=== PATIENT | male | born 1940 | race Caucasian/White ===

== ENCOUNTER 2018-04-14 11:41 | Outpatient (CLI) | payer MEDICARE ==
--- NOTE | 2018-04-14 13:41 | RAD ---
SUPINE VIEW ABDOMEN: HISTORY: Abdominal pain and distention. TECHNIQUE: A supine view of the abdomen is obtained. FINDINGS: There is an inferior vena cava filter in place at the level of L1-L2. A moderate amount of stool is seen in the colon. No evidence of bowel obstruction or ileus is seen. There is a right hip arthroplasty in place. AP view abdomen demonstrates no significant interval change since the previous comparison exam from 01/26/2017. POS: PRATIMA
== END 2018-04-14 11:42 | disposition home or self-care (01) ==
LOC: SJMANOR 11:41
PROVIDERS: ATTEND Family Medicine
DX: R10.9 Unspecified abdominal pain (principal); R14.0 Abdominal distension (gaseous); Z96.641 Presence of right artificial hip joint
CPT/HCPCS: 74018

== ENCOUNTER 2018-10-09 22:38 | Emergency (ER) | payer MEDICARE, BC, MEDICAID ==
[2018-10-09] MEDS ORDERED: Morphine 4 MG/ML VIAL ONE (23:24)
[2018-10-09] MEDS ORDERED: Ondansetron PF 4 MG/2 ML Vial ONE (23:24)
--- NOTE | 2018-10-10 08:06 | ULT ---
PRELIMINARY REPORT/[facility]/EMERGENTY AFTER-HOURS PROCEDURE US Right Duplex Lower Extremity Veins, Limited EXAM DATE/TIME: 10/09/2018 11:30 PM CLINICAL HISTORY: 78 years old, male; Pain; Other: Rle pain, swelling, prev dvt and ivc filter TECHNIQUE: Real-time Duplex ultrasound of the Right Lower Extremity with 2-D rodgers scale, color Doppler flow and spectral waveform analysis. Limited exam was focused on the right lower extremity veins. COMPARISON: No relevant prior studies available. FINDINGS: Right deep veins: Patient has a duplicated femoral vein with partial thrombus within the medial vein which extends down the popliteal and into the posterior tibial vein compatible with chronic DVT. Flow is seen within the deep venous system including the posterior tibial, popliteal and femoral vein and there is augmentation. Right superficial veins: Unremarkable. Saphenofemoral junction is patent without thrombus. Soft tissues: Soft tissue edema is present. IMPRESSION: Partially occlusive thrombus with the medial segment of duplicated RIGHT femoral vein which extends t o the popliteal and posterior tibial veins suggestive of chronic DVT. Thank you for allowing us to participate in the care of your patient. Dictated and Authenticated by: Faisal Castillo MD 10/10/2018 12:33 AM Central Time ([place] & [place]) FINAL REPORT ULTRASOUND WITH DOPPLER DUPLEX VENOUS LOWER EXTREMITY RIGHT: Date: 10/09/11 CPT: 62685 ICD-10-PCS: [id number] INDICATION: History of prior deep venous thrombosis and IVC filter placement. Right leg pain. FINDINGS: There is evidence of increased echogenicity with diminished flow and lumen compressibility involving the region of the right femoral vein to the level of the posterior tibial vein. Component of flow is documented, indicating partially occlusive thrombus. IMPRESSION: Partially occlusive deep venous thrombosis of the right lower extremity. I agree with the above provided preliminary interpretation from [facility].
== END 2018-10-10 01:13 | disposition home or self-care (01) ==
LOC: ERS 22:38
DX: I82.501 Chronic embolism and thrombosis of unspecified deep veins of right lower extremity (principal); I10 Essential (primary) hypertension; I48.91 Unspecified atrial fibrillation; K21.9 Gastro-esophageal reflux disease without esophagitis; F41.9 Anxiety disorder, unspecified; F32.9 Major depressive disorder, single episode, unspecified; Z79.899 Other long term (current) drug therapy
CPT/HCPCS: 96374; 96375; J2270; J2405